=== PATIENT | female | born 1965 | race Caucasian/White ===

== ENCOUNTER → 2016-05-07 | Outpatient (CLI) | payer OTHER ==
[~2016-05-07] MED LIST: ALBUTEROL17 GM; ALLEGRA PO; ALLEGRA180 MG PO; ALPRAZOLAM PO; ASPIRIN PO; ASTEPRO205.5 MCG/ INH; BACTRIM DS TABL1 TA1 PO; BENADRYL PO; CIPRO PO; CLEOCIN PO; CYCLOSPORIN; DARVOCET-N 1001 TAB PO; EC-NAPROSYN500 MG PO; EPIPEN0.3 MG/0.1 IM; FLEXERIL PO; FLEXERIL10 MG PO; FLONASE 0.05% N16 G1 INH; IBUPROFEN PO; LASIX20 MG PO; MOBIC15 MG PO; NAPROXEN PO; NO MEDICATIONS; PERCOCET 5-3251 TAB PO; PERCOCET PO; SINGULAIR PO; SPIRIVA18 MCG INH; VIBRAMYCIN100 M1 PO; VITAMIN B-625 MG PO; VOLTAREN75 MG PO; XOLAIR150 MG/1.2 INJ; XOPENEX45 MCG/15 IH; ZITHROMAX PO; ZYRTEC10 M2 PO; [UNRECOGNIZED DRUG - OTHER] INH; [UNRECOGNIZED DRUG - OTHER] PO
== END | disposition home or self-care (01) ==
LOC: CSSDAY 09:04
DX: J45.50 Severe persistent asthma, uncomplicated (principal); Z79.899 Other long term (current) drug therapy
CPT/HCPCS: 96372; J2357

== ENCOUNTER → 2016-06-04 | Outpatient (CLI) | payer OTHER | END | disposition home or self-care (01) | LOC: CSSDAY 11:28 | DX: J45.50 Severe persistent asthma, uncomplicated (principal) | CPT/HCPCS: J2357 ==

== ENCOUNTER → 2016-07-02 | Outpatient (CLI) | payer OTHER | END | disposition home or self-care (01) | LOC: CSSDAY 11:14 | DX: J45.50 Severe persistent asthma, uncomplicated (principal); Z79.899 Other long term (current) drug therapy | CPT/HCPCS: J2357 ==

== ENCOUNTER → 2016-07-31 | Outpatient (CLI) | payer OTHER | END | disposition home or self-care (01) | LOC: CSSDAY 07-30 10:00 | DX: J45.50 Severe persistent asthma, uncomplicated (principal) | CPT/HCPCS: 96372; J2357 ==

== ENCOUNTER → 2016-08-28 | Outpatient (CLI) | payer OTHER | END | disposition home or self-care (01) | LOC: CSSDAY 10:00 | DX: J45.50 Severe persistent asthma, uncomplicated (principal); Z79.899 Other long term (current) drug therapy | CPT/HCPCS: 96372; J2357 ==

== ENCOUNTER → 2016-09-25 | Outpatient (CLI) | payer OTHER | END | disposition home or self-care (01) | LOC: CSSDAY 07:15 | DX: J45.50 Severe persistent asthma, uncomplicated (principal) | CPT/HCPCS: 96372; J2357 ==

== ENCOUNTER → 2016-10-23 | Outpatient (CLI) | payer OTHER | END | disposition home or self-care (01) | LOC: CSSDAY 08:00 | DX: J45.50 Severe persistent asthma, uncomplicated (principal) | CPT/HCPCS: 96372; J2357 ==